=== PATIENT | female | born 1995 | race African-American/Black ===

== ENCOUNTER 2016-11-02 13:57 | Emergency (ER) | payer SELFPAY ==
[~2016-11-02] VITALS: Ht 172.7 cm; Wt 67.1 kg
[2016-11-02 14:04] VITALS: BP 134/63
[2016-11-02] MEDS ORDERED: IV NORMAL SALINE 1000ML BAG 1,000 ML IV SCH (14:06)
[2016-11-02] MEDS ORDERED: FAMOTIDINE 20 MG/2 ML VIAL IVP ONE (14:15)
[2016-11-02] MEDS ORDERED: methylPREDNISolone SOD SUCC PF 125 MG/2 ML VIAL. IV ONE (14:15)
[2016-11-02] MEDS ORDERED: diphenhydrAMINE 50 MG/ML VIAL IV ONE (14:15)
[2016-11-02] MEDS ORDERED: FAMO-63 PO (15:17)
[2016-11-02] MEDS ORDERED: PRED50TA PO (15:17)
[2016-11-02] MEDS ORDERED: EPIPEN 2-P0.3 MG/0.3 IJ (15:18)
--- NOTE | 2016-11-02 15:19 | PHYS DOC ---
Past Medical History Past Medical History: Asthma Additional Past Medical Histor: ADHD Past Surgical History: No Surgical History Alcohol Use: Occasionally Drug Use: Marijuana Adult General Chief Complaint Chief Complaint: ALLERGIC REACTION HPI HPI Patient is a 21 year old female who presents with allergic reaction. She believes she was stung by a bee or wasp, had onset of diffuse hives with throat tightness and lip tingling. She felt short of breath. EMS administered epi IM 2. She states her respiratory symptoms have completely resolved. Denies vomiting or diarrhea. Denies previous history of similar symptoms. No other new exposures including foods, medications, soap, lotion, detergent. No PCP. Review of Systems Review of Systems Constitutional: Denies fever or chills HENT: Reports throat swelling Respiratory: Denies cough, reports shortness of breath Cardiovascular: Denies chest pain GI: Denies abdominal pain, nausea, vomiting, or diarrhea : Denies dysuria or hematuria Musculoskeletal: Denies back pain or joint pain Integument: Reports urticaria Neurologic: Denies headache, focal weakness or sensory changes Current Medications Current Medications Current Medications Medications (Trade) Dose Ordered Sig/Carlene Start Time Stop Time Status Last Admin Dose Admin Diphenhydramine HCl (Benadryl) 25 mg 1X ONCE 11/02/16 14:15 11/02/16 14:16 DC 11/02/16 14:15 25 MG Famotidine (Pepcid) 20 mg 1X ONCE 11/02/16 14:15 11/02/16 14:16 DC 11/02/16 14:14 20 MG Methylprednisolone Sodium Succinate (SOLU-Medrol 125MG VIAL) 125 mg 1X ONCE 11/02/16 14:15 11/02/16 14:16 DC 11/02/16 14:14 125 MG Sodium Chloride 1,000 ml @ 1,000 mls/hr Q1H 11/02/16 14:06 11/02/16 15:05 11/02/16 14:14 1,000 MLS/HR Allergies Allergies Allergies Coded Allergies Type Severity Reaction Last Updated Verified No Known Drug Allergies 06/01/13 No Physical Exam Physical Exam Constitutional: Well developed, well nourished, no acute distress, non-toxic appearance. HENT: Normocephalic, atraumatic, bilateral external ears normal, oropharynx moist, nose normal. no face/tongue/lip swelling. Eyes: conjunctiva normal, no discharge. Neck: supple, no stridor. Cardiovascular: RRR, no murmurs, no edema. Lungs & Thorax: LCTAB, no wheezing, no respiratory distress. Abdomen: soft, nontender, nondistended. Skin: diffuse but sparse urticaria to face, torso, extremities Back: No tenderness. Extremities: No tenderness, no edema. Neurologic: Alert and oriented X 3 Current Patient Data Vital Signs Vital Signs Date Time Temp Pulse Resp B/P (MAP) Pulse Ox O2 Delivery O2 Flow Rate FiO2 11/02/16 14:04 98.8 107 20 134/63 (86) 99 Room Air 98.8 EKG EKG [] Radiology/Procedures Radiology/Procedures [] Course & Med Decision Making Course & Med Decision Making Pertinent Labs and Imaging studies reviewed. (See chart for details) The patient presents with allergic reaction, improving after epi administration in the field. Gave IV fluids, benadryl, pepcid, solumedrol upon arrival. Will monitor for 2 hours to observe for recurrence of symptoms. Will transfer care to Dr. Nguyễn at 1530 to continue observation. If stable, will discharge with prescriptions for epi pen, prednisone, pepcid, & continue benadryl. She is in stable condition at the end of my shift. Roscoe Kothari MD [] Dragon Disclaimer Dragon Disclaimer This electronic medical record was generated, in whole or in part, using a voice recognition dictation system. Departure Departure Impression: Primary Impression: Allergic reaction Disposition: 01 HOME, SELF-CARE Condition: IMPROVED Referrals: CAROLYNE FERREIRA MD (PCP) Patient Instructions: Insect Sting Allergy Additional Instructions: You were seen in the emergency department today for allergic reaction likely to insect sting. Please fill your prescription for epinephrine and keep with you. Use if you have face/tongue/lip swelling, shortness of breath, widespread hives after insect sting. For the next 5 days take prednisone & Pepcid, and Benadryl every 6 hours. Follow-up with primary care physician within one week. You might need allergy testing. Return to the emergency department for face/tongue/lip swelling, severe shortness of breath, any otherwise worsening condition. Scripts Epinephrine (EPIPEN 2-IRA) 0.3 Mg/0.3 Ml Auto.injct 0.3 MG IJ 1X Y for ANAPHYLAXIS, #1 SYR Prov: ROSCOE KOTHARI MD 11/02/16 Famotidine (PEPCID) 20 Mg Tablet 20 MG PO HS for 5 Days, #5 TAB Prov: ROSCOE KOTHARI MD 11/02/16 Prednisone (PREDNISONE) 50 Mg Tablet 1 TAB PO DAILY, #5 TAB Prov: ROSCOE KOTHARI MD 11/02/16 ROSCOE KOTHARI MD Nov 02, 2016 15:19
== END 2016-11-02 16:00 | disposition home or self-care (01) ==
LOC: ER 13:57
DX: T78.40XA Allergy, unspecified, initial encounter (principal); F90.9 Attention-deficit hyperactivity disorder, unspecified type; J45.909 Unspecified asthma, uncomplicated; F12.10 Cannabis abuse, uncomplicated; X58.XXXA Exposure to other specified factors, initial encounter
CPT/HCPCS: 96361; 96374; 96375; 99284; J1200; J2930; J7030; S0028

== ENCOUNTER 2017-05-08 23:30 | Emergency (ER) | payer OTHER ==
[2017-05-09 00:43] LABS: INFLUENZA A PATIENT NEGATIVE (NEGATIVE); INFLUENZA B PATIENT NEGATIVE (NEGATIVE); OBC FLU VALID
== END 2017-05-09 01:05 | disposition home or self-care (01) ==
LOC: ER 23:30
DX: J06.9 Acute upper respiratory infection, unspecified (principal); J45.909 Unspecified asthma, uncomplicated; F90.9 Attention-deficit hyperactivity disorder, unspecified type
CPT/HCPCS: 87804; 87804-59; 99284

== ENCOUNTER 2018-08-02 00:10 | Emergency (ER) | payer OTHER ==
[~2018-08-02] VITALS: Ht 172.7 cm; Wt 72.6 kg
[~2018-08-02 00:10] MED LIST: EPIPEN 2-P0.3 MG/0.3 IJ; FAMO-63 PO; PRED50TA PO
[2018-08-02 00:43] LABS: BILIRUBIN,URINE NEGATIVE (NEG); CLARITY,URINE CLEAR; COLOR,URINE YELLOW; NITRITE,URINE NEGATIVE (NEG); PH,URINE 6.5; PROTEIN,URINE NEGATIVE (NEG-TRACE)
[2018-08-02 00:59] LABS: BACTERIA,URINE MODERATE /HPF (0-FEW); SQUAMOUS EPITHELIAL CELL,UR MANY /LPF
--- NOTE | 2018-08-02 01:15 | PHYS DOC ---
Past Medical History Past Medical History: Asthma Additional Past Medical Histor: ADHD Past Surgical History: No Surgical History Alcohol Use: Occasionally Drug Use: None Adult General Chief Complaint Chief Complaint: VAGINAL BLEEDING HPI HPI Patient is a 23 year old female who presents with vaginal bleeding. Onset was 3 or 4 days ago. Bleeding has been constant since onset. Color is dark blood. She states it is a "slow leak" of blood mostly spotting she tells me. There appears to be no specific timing. She also describes a lower abdominal pain that started at the same time. The pain is a sharp, crampy sensation it does wax and wane but it's been constant to some degree she thinks that her body is "just not right". Constant for the several days. Denies pelvic pain or discharge. Pt states she is on depo for control. Her last shot was a couple weeks ago. She has been on the depo shot for years and has not had a period since starting the shot. She denies fever, chills, or recent illness. No medical conditions. Her [employer] is at but she gets her shot from the health department. [] Review of Systems Review of Systems Constitutional: Denies fever or chills [] Eyes: Denies change in visual acuity, redness, or eye pain [] HENT: Denies nasal congestion or sore throat [] Respiratory: Denies cough or shortness of breath [] Cardiovascular: No additional information not addressed in HPI [] GI: Abdominal pain. Denies nausea, vomiting, bloody stools or diarrhea [] : Denies dysuria or hematuria. Vaginal bleeding. Denies discharge or pain. [] Musculoskeletal: Denies back pain or joint pain [] Integument: Denies rash or skin lesions [] Neurologic: Denies headache, focal weakness or sensory changes [] Endocrine: Denies polyuria or polydipsia [] All other systems were reviewed and found to be within normal limits, except as documented in this note. Allergies Allergies Allergies Coded Allergies Type Severity Reaction Last Updated Verified No Known Drug Allergies 06/01/13 No Physical Exam Physical Exam Constitutional: Well developed, well nourished, no acute distress, non-toxic appearance. [] HENT: Normocephalic, atraumatic, bilateral external ears normal, oropharynx moist, no oral exudates, nose normal. [] Eyes: PERRLA, EOMI, conjunctiva normal, no discharge. [] Neck: Normal range of motion, no tenderness, supple, no stridor. [] Pulmonary: Normal respiratory effort no increased work of breathing no obvious chest wall trauma Abdomen: Bowel sounds normal, soft, no tenderness, no masses, no pulsatile masses. [] Skin: Warm, dry, no erythema, no rash. [] PELVIC was deferred due to mild symptoms mainly spotting only per her report Extremities: No tenderness, no cyanosis, no clubbing, ROM intact, no edema. [] Neurologic: Alert and oriented X 3, normal motor function, normal sensory function, no focal deficits noted. [] Psychologic: Affect normal, judgement normal, mood normal. [] Current Patient Data Vital Signs Vital Signs Date Time Temp Pulse Resp B/P (MAP) Pulse Ox O2 Delivery O2 Flow Rate FiO2 08/02/18 02:08 68 16 130/62 (84) 99 Room Air 08/02/18 00:20 98.5 98.5 Lab Values Laboratory Tests Test 08/02/18 00:19 08/02/18 00:25 08/02/18 01:15 POC Urine HCG, Qualitative Hcg negative (Negative) Urine Collection Type Unknown Urine Color Yellow Urine Clarity Clear Urine pH 6.5 Urine Specific Moore 1.020 Urine Protein Negative mg/dL (NEG-TRACE) Urine Glucose (UA) Negative mg/dL (NEG) Urine Ketones (Stick) Negative mg/dL (NEG) Urine Blood Small (NEG) Urine Nitrite Negative (NEG) Urine Bilirubin Negative (NEG) Urine Urobilinogen Dipstick 1.0 mg/dL (0.2 mg/dL) Urine Leukocyte Esterase Small (NEG) Urine RBC 1-2 /HPF (0-2) Urine WBC 1-4 /HPF (0-4) Urine Squamous Epithelial Cells Many /LPF Urine Bacteria Moderate /HPF (0-FEW) Urine Mucus Marked /LPF White Blood Count 9.5 x10^3/uL (4.0-11.0) Red Blood Count 3.92 x10^6/uL (3.50-5.40) Hemoglobin 11.5 g/dL (12.0-15.5) L Hematocrit 34.4 % (36.0-47.0) L Mean Corpuscular Volume 88 fL (79-100) Mean Corpuscular Hemoglobin 29 pg (25-35) Mean Corpuscular Hemoglobin Concent 34 g/dL (31-37) Red Cell Distribution Width 12.5 % (11.5-14.5) Platelet Count 301 x10^3/uL (140-400) Neutrophils (%) (Auto) 62 % (31-73) Lymphocytes (%) (Auto) 25 % (24-48) Monocytes (%) (Auto) 8 % (0-9) Eosinophils (%) (Auto) 5 % (0-3) H Basophils (%) (Auto) 1 % (0-3) Neutrophils # (Auto) 5.9 x10^3uL (1.8-7.7) Lymphocytes # (Auto) 2.4 x10^3/uL (1.0-4.8) Monocytes # (Auto) 0.7 x10^3/uL (0.0-1.1) Eosinophils # (Auto) 0.5 x10^3/uL (0.0-0.7) Basophils # (Auto) 0.0 x10^3/uL (0.0-0.2) Laboratory Tests 08/02/18 01:15 EKG EKG [] Radiology/Procedures Radiology/Procedures [] Course & Med Decision Making Course & Med Decision Making Pertinent Labs and Imaging studies reviewed. (See chart for details) 23-year-old female presenting with irregular vaginal spotting 3 days some mild lower abdominal discomfort given time course as well as overall mild symptoms are not concerned about an emergency like torsion etc. she is very comfortable-appearing she's had no fever her abdomen is nontender she denies any vaginal discharge is some spotting as noted above I don't think she warrants testing for PID etc. 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 and she would rather just go home now rather than having that done here in the emergency room which I think is reasonable, again given the time course as noted above. We did check a CBC which looked reassuring overall mild anemia only not Dragon Disclaimer Dragon Disclaimer This electronic medical record was generated, in whole or in part, using a voice recognition dictation system. Departure Departure Impression: Primary Impression: Dysfunctional uterine bleeding Disposition: HOME, SELF-CARE Condition: STABLE Referrals: CAROLYNE FERREIRA MD (PCP) ALE MEDRANO MD Aug 02, 2018 01:15
[2018-08-02 01:37] LABS: BASO % 1 % (0-3); EOS # 0.5 x10^3/uL (0.0-0.7); EOS % 5 % (0-3); HEMATOCRIT 34.4 % (36.0-47.0); HEMOGLOBIN 11.5 g/dL (12.0-15.5); LYMPH # 2.4 x10^3/uL (1.0-4.8); LYMPH % 25 % (24-48); MEAN CORPUSCULAR HEMOGLOBIN 29 pg (25-35); MEAN CORPUSCULAR HGB CONC 34 g/dL (31-37); MEAN CORPUSCULAR VOLUME 88 fL (79-100); MONO # 0.7 x10^3/uL (0.0-1.1); MONO % 8 % (0-9); NEUT # 5.9 x10^3uL (1.8-7.7); NEUT % 62 % (31-73); PLATELET COUNT 301 x10^3/uL (140-400); RED BLOOD COUNT 3.92 x10^6/uL (3.50-5.40); RED CELL DISTRIBUTION WIDTH 12.5 % (11.5-14.5); WHITE BLOOD COUNT 9.5 x10^3/uL (4.0-11.0)
[2018-08-02 02:08] VITALS: BP 130/62
== END 2018-08-02 02:10 | disposition home or self-care (01) ==
LOC: ER 00:10
DX: N93.8 Other specified abnormal uterine and vaginal bleeding (principal); R10.9 Unspecified abdominal pain; J45.909 Unspecified asthma, uncomplicated; F90.9 Attention-deficit hyperactivity disorder, unspecified type
CPT/HCPCS: 36415; 81001; 81025; 85025; 87086; 99284

== ENCOUNTER 2018-12-30 09:32 | Emergency (ER) | payer SELFPAY ==
[~2018-12-30] VITALS: Ht 170.2 cm; Wt 74.8 kg
[2018-12-30 09:52] VITALS: BP 130/76
--- NOTE | 2018-12-30 09:58 | PHYS DOC ---
Past Medical History Past Medical History: Asthma Additional Past Medical Histor: ADHD Past Surgical History: No Surgical History Smoking: Cigarettes Alcohol Use: Occasionally Drug Use: None Adult General Chief Complaint Chief Complaint: SORE THROAT HPI HPI Patient is a 23-year-old female who presents to the emergency department for evaluation. She states a week ago, she began experiencing nasal congestion, mild sore throat, and a cough productive of greenish mucus. She denies any shortness of breath or fever. She states she is feeling mostly better now, but is still somewhat congested, and her place of work stated that she needed a doctor's note to come back to work. She denies current sore throat, otalgia, headache, shortness of breath, or any pain. There are no alleviating or exacerbating factors to her symptoms. Review of Systems Review of Systems Constitutional: Denies fever or chills [] Eyes: Denies change in visual acuity, redness, or eye pain [] HENT: Denies current otalgia or sore throat [] Respiratory: Denies pleuritic pain or or shortness of breath [] : Denies dysuria or hematuria. Denies [] Musculoskeletal: Denies back pain or joint pain [] Integument: Denies rash or skin lesions [] Neurologic: Denies headache, focal weakness or sensory changes [] Allergies Allergies Allergies Coded Allergies Type Severity Reaction Last Updated Verified No Known Drug Allergies 06/01/13 No Physical Exam Physical Exam PHYSICAL EXAM: CONSTITUTIONAL: Well developed, well nourished HEAD: normocephalic, atraumatic EENT: PERRL, EOMI. Conjunctivae normal color, sclerae non-icteric; moist mucous membranes. The oropharynx is unremarkable, without any erythema or exudate. NECK: Supple, non-tender; no meningismus. LUNGS: Lungs CTA, breathing even and unlabored. Normal air movement. HEART: Regular rate and rhythm, no murmur CHEST: No deformity; non-tender ABDOMEN: The abdomen is soft, and non-tender, no masses or bruits. EXTREM: Normal ROM; no deformity, no calf tenderness. Normal pulses palpable in all extremities. There is no pedal edema. SKIN: No rash; no diaphoresis NEURO: Alert; normal speech and cognition; CN's grossly intact; strength grossly intact without focal deficit. BACK: No CVA TTP. EKG EKG [] Radiology/Procedures Radiology/Procedures [] Course & Med Decision Making Course & Med Decision Making Discussed expectant management with the patient and the need for follow-up and return precautions. Maxx Disclaimer Dragon Disclaimer This electronic medical record was generated, in whole or in part, using a voice recognition dictation system. Departure Departure Impression: Primary Impression: URI (upper respiratory infection) Disposition: HOME, SELF-CARE Condition: STABLE Patient Instructions: Upper Respiratory Infection, Adult NICKIE MERINO MD Dec 30, 2018 09:58
== END 2018-12-30 10:01 | disposition home or self-care (01) ==
LOC: ER 09:32
DX: J06.9 Acute upper respiratory infection, unspecified (principal); J45.909 Unspecified asthma, uncomplicated; F17.210 Nicotine dependence, cigarettes, uncomplicated
CPT/HCPCS: 99281